=== PATIENT | female | born 1960 | race Caucasian/White ===

== ENCOUNTER → 2019-09-23 | Outpatient (CLI) | payer OTHER | END | disposition home or self-care (01) | LOC: CFH 10:45 | PROVIDERS: ATTEND Nurse Practitioner Family | DX: Z12.31 Encounter for screening mammogram for malignant neoplasm of breast (principal) | CPT/HCPCS: 77063; 77067 ==

== ENCOUNTER 2020-05-07 07:25 | Outpatient (CLI) | payer OTHER | END 2020-05-07 23:59 | disposition home or self-care (01) | LOC: RAD 07:25 | PROVIDERS: ATTEND Physician Assistant | DX: K43.9 Ventral hernia without obstruction or gangrene (principal); Z00.01 Encounter for general adult medical examination with abnormal findings; G44.1 Vascular headache, not elsewhere classified | CPT/HCPCS: 76705 ==